=== PATIENT | female | born 1985 | race Caucasian/White ===

== ENCOUNTER 2017-09-22 10:32 | Inpatient (IN) | payer BC ==
[~2017-09-22] VITALS: Ht 165.9 cm; Wt 90.3 kg
[2017-09-22] VITALS (11 sets, daily range): BP systolic 105–129; BP diastolic 54–67; Ht 165.9 cm; Wt 90.3 kg
[2017-09-22] MEDS ORDERED: ceFAZolin(*) 2GM/D5W 50ML 50 ML IVPB PRN (11:22)
[2017-09-22] MEDS ORDERED: OXYTOCIN 30 UNIT/D5LR 500 ML 500 ML IV PRN ×2 (11:22→22:26)
[2017-09-22] MEDS ORDERED: FAMOTIDINE(*) 20MG/50ML PREMIX 50 ML IVPB PRN (11:22)
[2017-09-22] MEDS ORDERED: FLUSH 10 ML SYR IVP PRN (11:25)
[2017-09-22] MEDS ORDERED: LIDOCAINE 1% LOCAL 300 MG/30ML INJ PRN (11:25)
[2017-09-22] MEDS ORDERED: ONDANSETRON 4 MG/2 ML VIAL IVP PRN (11:25)
[2017-09-22] MEDS ORDERED: LIDOCAINE/SOD BICARB 8.4% SYR SC PRN (11:25)
[2017-09-22] MEDS ORDERED: fentaNYL CITR 100 MCG/2 ML AMP IVP PRN (11:25)
[2017-09-22] MEDS ORDERED: METOCLOPRAMIDE 10 MG/2 ML SDV IVP PRN (11:25)
[2017-09-22] MEDS ORDERED: LIDOCAINE/SOD BICARB 8.4% SYR ONE (11:36)
[2017-09-22] MEDS: LR(*) 1000 ML BAG 1,000 ML IV SCH ×3 (11:51→18:00)
[2017-09-22 11:55] LABS: PLATELET COUNT, AUTOMATED 169 K/uL (150-450)
[2017-09-22] MEDS ORDERED: BUPIVACAINE 0.5% INJ 30ML VIAL EPI PRN (12:05)
[2017-09-22] MEDS ORDERED: BUPIVACAINE 0.25% MPF INJ EPI PRN (12:05)
[2017-09-22] MEDS ORDERED: LIDOCAINE/PF 2% 200MG/10ML AMP 200 MG/10 ML AMPUL EPI PRN (12:05)
[2017-09-22] MEDS ORDERED: FENTANYL/ROPIVACAINE 100 ML BAG EPI PRN (12:05)
[2017-09-22] MEDS ORDERED: EPIDURAL KEYS XX PRN (12:05)
[2017-09-22] MEDS ORDERED: fentaNYL CITR 100 MCG/2 ML AMP IT PRN (12:05)
[2017-09-22] MEDS ORDERED: LIDO/EPI 2% MPF 1:200,000 20ML EPI PRN (12:05)
--- NOTE | 2017-09-22 13:51 | History & Physical ---
History of Present Illness Age of Patient: 32 : 1 Para or TPAL: 0 EDC per LMP: Sep 25, 2017 EDC per U/S: Sep 28, 2017 Estimated Gestational Age: 39.4 Chief Complaint Contractions History of Present Illness Pt is a 32 y/o @ 39-4/7 weeks gestation who presents to L&D with a chief complaint of painful contractions. Reports contractions started this morning and are now every 3-5 minutes apart. Denies any vaginal bleeding or loss of amniotic fluid. Reports good movement. Pt diagnosed with seizure disorder during . Takes Keppra. Managed by [facility]. History Patient's Blood Type: A Positive Rubella Status: Immune Group B Strep Screen: Negative Obstetrical History: Primigravid Past Medical History: Partial Seizures: Managed with Keppra BID. Sees Dr[facility]. Allergies: Coded Allergies: No Known Drug Allergies (Unverified , 09/22/17) Social History: Denies X3. . is Miles Review of Systems All Systems Reviewed/Normal: Yes, Except as Noted Constitutional: No Fever, No Weight Loss, No Weight Gain, No Chills, No Night Sweats, No Other Neurological: No Syncope, No Confusion, No Weakness, No Dizziness, No Slurred Speech, No Other Eyes: No Vision Change, No Loss of Vision, No Photophobia, No Other ENT: No Hearing Loss, No Sinus Congestion, No Sore Throat, No Ear Ache, No Tinnitus, No Other Respiratory: No Shortness of Breath, No Cough, No Wheezing, No Other Gastrointestinal: No Nausea, No Vomiting, No Diarrhea, No Dysphagia, No Constipation, No Early Satiety, No Hematemesis, No Hematochezia, No Melena, No Abdominal Pain, No Other Genitourinary: No Dysuria, No Hematuria, No Urinary Incontinence, No Other Musculoskeletal: No Pain, No Sprain, No Strain, No Impaired Mobility, No Other Psychiatric: No Depression, No Anxiety, No Other Exam General Exam Vital Signs Vital Signs Date Time Temp Pulse Resp B/P (MAP) Pulse Ox O2 Delivery O2 Flow Rate FiO2 09/22/17 12:08 99.1 75 18 112/60 (77) 96 General Apperance: Alert/Awake/No Acute Distress Neuro: No Gross deficits Eyes: Normal Extraocular Movement & Vison, PERRLA ENT: Normal Cardiovascular: Regular Rate and Rhythm Respiratory: No Respiratory Distress, Clear to Auscultation Abdomen: Soft, Non-Tender, Non-Distended, Gravid - Non-Tender : Normal Musculoskeletal: No Weakness/Pain Extremities: No Cyanosis,Clubbing or Edema Integumentary: Skin Intact without Lesions or Rash Psychological: Alert & Oriented X3, Appropriate Mood & Affect Cervical Dialation: 5 Cervical Effacement (%): 100 Cervical Consistency: Soft Cervical Position: Anterior Station: -2 Presentation: Vertex Uterine Contractions(Q min): 4 Uterine Contraction Strength: Moderate UC Resting Tone: Soft Fetus Feeling Movement?: Yes Estimated Weight(grams): 3200 Heart Tones: 135 Heart Tone Variabilty: Moderate FHT Accelerations: 15X15 FHT Decelerations: Variable FHT Category: II Medical Decision Making Data Points Result Diagram: 09/22/17 1145 Pre-Admit Course Medical Record Review: Yes VTE Prophylasis: Adult Deep Vein Thrombosis/Pulmonary: No Assessment and Plan LABORATORY CHEMICAL ASSISTANT Assessment: Stable LABORATORY CHEMICAL ASSISTANT Plan: Routine Labor/Induct Care Problems: (1) 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 Seizure precautions while in labor and post . (2) 39 weeks gestation of (3) Active labor at term Assessment & Plan: Plan for amniotomy. Epidural at patient request. MARKOS PRATT DO Sep 22, 2017 13:51
--- NOTE | 2017-09-22 16:36 | Anesthesia OB Pre-Anes Eval ---
History of Present Illness Anesthesia Start Date: Sep 22, 2017 Anesthesia Start Time: 15:30 OB Anesthesia Diagnosis: spontaneous labor Complications: None known EDC: Sep 25, 2017 : 1 Para: 0 Vital Signs: Vital Signs Date Time Temp Pulse Resp B/P (MAP) Pulse Ox O2 Delivery O2 Flow Rate FiO2 09/22/17 12:08 99.1 75 18 112/60 (77) 96 Pain Ratin Heart Tones: WNL Result Diagram: 09/22/17 1145 Height (Inches): 65.30 Weight (Pounds): 199 BMI Calculated: 32.81 Past Medical History Medical History: seizures (with ) Surgical History: other (septoplasty) Previous Anesthesia: general Attended Childbirth Classes?: No, Other (dula) Hx Anesthesia Reactions: No Hx Family Anesthesia Reaction: No Current Medications: pain medication (Fentenyl IV) Allergies: Coded Allergies: No Known Drug Allergies (Unverified , 09/22/17) Anesthesia OB ROS Neurological: seizures (during ,see neurologist and on medication) ENT: Denies Tooth caps, Denies Loose teeth, Denies Chipped teeth, Denies Dentures, Denies Bridges, Denies Retainers, Denies Veneers, Denies Implants, Denies Tongue ring Pulmonary: No asthma, No smoker (pks/day/yrs) Airway Class: ll Cardiovascular ROS: No edema, No arrhythmia GI ROS: clear liquids Last Solids Date: Sep 22, 2017 Last Solids Time: 07:30 ROS: No Herpes, No STD(s), No Liver Disease, No Renal Disease Endocrine ROS: No diabetes, No gestational diabetes, No thyroid disorder Musculoskeletal ROS: No low back pain, No low back injury, No scoliosis ASA Classification: 2 Assessment and Plan Anesthesia Plan: CSE Assessment Past Medical, Surgical, Family and Obstetric Histories reviewed. Please see ACOG chart. Epidural anesthesia risks, complications and benefits explained to patient's satisfaction for labor and vaginal delivery and/or section. General anesthesia risks and benefits explained to patient's satisfaction. Questions invited, none asked. KIRAN DYER CRNA Sep 22, 2017 16:36
--- NOTE | 2017-09-22 16:40 | Procedure Note ---
Anesthetic Placement Note Anesthesia Plan: CSE Permit for Anesthesia Signed: Yes Anesthesia Technique: Patient Sitting Anesthesia Prep: Chlorhexidine Interspace: L 3-4 Local Anesthetic: 1% Lidocaine, 25 Gauge Needle Amount Local - cc's: 2 Anesthesia Needle: 17g Touhy/Schliff Anesthesia Attempts: 1 Loss of Resistance: Air Depth of LOS (cm): 6 Epidural Needle Placement: No CSF, No Blood, No Parasthesia Intrathecal Needle: 27 Gauge Pencan Cerebral Spinal Fluid: Yes, Clear Catheter Insertion (cm): 9 Catheter Type: Andrew - Spring Wound Epidural Dressing: Tegaderm, Tape, Adhesive [place] Anesthesia Tray: Lot Number ([id number]), Expiration Date (2018-04-25), Reference Number ([id number]) Anesthesia Medications: Intrathecal Dose: mcg Fentanyl (15), mg Marcaine MPF (1.75), Time (1544) Epidural Test Dose: 1.5 Lido/Epi (1:200,000), Dose - mL (2), Time (1605), Negative Epidural Loading Dose: 0.2% Ropivicaine, With Fentanyl 2mcg/ml, Dose - ml (5), Time (1606) Epidural Infusion: 0.2% Ropivicaine, With Fentanyl 2mcg/ml, Start Time: (1606) Epidural Pump Setting: Bolus Dose - mL (5), Lockout - Minutes (20), Maintenance Rate - mL/hr (6), Maximum per Hour - mL (21) Complications: None Comment: Vital signs stable. Patient comfortable and condition stable. KIRAN DYER CRNA Sep 22, 2017 16:40
--- NOTE | 2017-09-22 16:47 | Anesthesia Progress Note ---
Progress/Maintenance Anesthesia Note Date: Sep 22, 2017 Anesthesia Note Time: 16:45 Pain Intensity: 0 Pump: On Pump Rate (ML/HR): 6 Sensory Level: T-12 Motor Level: Bending Knees-Bilateral Dilatation: 8 Position: Right, Tilt Assessment and Plan Assessment Turned onto rt side. Mild itching noted. Remains very comfortable and attempting to sleep. Able to move legs very well. KIRAN DYER CRNA Sep 22, 2017 16:47
--- NOTE | 2017-09-22 19:18 | Anesthesia Progress Note ---
Progress/Maintenance Anesthesia Note Date: Sep 22, 2017 Anesthesia Note Time: 19:00 Pain Intensity: 1 Pump: On Pump Rate (ML/HR): 6 Sensory Level: t-12 Motor Level: Bending Knees-Bilateral Dilatation: 10 Position: Left, Tilt Assessment and Plan Assessment States she feels only "pressure". Temp elevated. KIRAN DYER CRNA Sep 22, 2017 19:18
[2017-09-22] MEDS ORDERED: AMPICILLIN 2 GM VIAL 2 GM in NS(*) 0.9% 100 ML ADDVANT BAG 100 ML IVPB ONE (19:30)
[2017-09-22] MEDS ORDERED: GENTAMICIN IVPB ONE (19:35)
[2017-09-22] MEDS ORDERED: NS 0.9% IVPB ONE (19:35)
[2017-09-22] MEDS ORDERED: MEPERIDINE 50 MG/ML SYR ONE (20:30)
[2017-09-22] MEDS ORDERED: MORPHINE PF 5 MG/10 ML AMP ONE (20:33)
[2017-09-22] MEDS ORDERED: ONDANSETRON 4 MG/2 ML VIAL ONE (20:37)
[2017-09-22] MEDS ORDERED: KETOROLAC 30 MG/ML VIAL ONE (20:37)
[2017-09-22] MEDS ORDERED: OXYTOCIN 10 UNIT/ML SDV ONE ×2 (20:59)
--- NOTE | 2017-09-22 21:44 | RADIOLOGY IMAGING REPORT ---
FACILITY: [facility] - [place] PATIENT NAME: Lu Mathew : 1985 MR: [id number] V: [id number] EXAM DATE: ORDERING PHYSICIAN: MARKOS PRATT TECHNOLOGIST: Location: [facility] Patient: Lu Mathew : 1985 Visit/Account:[id number] Date of Sevice: 09/22/2017 KUB SINGLE VIEW ABDOMEN INDICATION: NO COUNT PRIOR TO STAT CSECTION EXAM DATE: 09/22/2017 8:38 PM COMPARISON: None. FINDINGS: 2 supine AP images of the abdomen. Bowel gas pattern is nonobstructive. Soft tissue density overlyi ng the pelvis and lower abdomen consistent with recently gravid uterus. Urethral catheter and epidur al catheter in place. No radiopaque foreign body suspicious for retained surgical equipment. IMPRESSION: No evidence of retained surgical equipment. Report Dictated By: Salomon Jang MD at 09/22/2017 9:39 PM Report E-Signed By: Salomon Jang MD at 09/22/2017 9:41 PM WSN:[id number]
[2017-09-22] MEDS ORDERED: levETIRAcetam 500 MG TAB PO SCH (22:00)
--- NOTE | 2017-09-22 22:04 | Anesthesia Progress Note ---
Progress/Maintenance Anesthesia Note Date: Sep 22, 2017 Anesthesia Note Time: 20:06 Pain Intensity: 0 Pump: Off Motor Level: Other (legs heavy) Dilatation: 10 Position: Tilt, Semi-Fowlers Assessment and Plan Assessment Decision made for E C/Section, intolerance of labor. Dosing with 2% Lidocaine with Epi. 10 ml given and additional [address] to OR. To OR per bed. Epidural Catheter Removal: Removed Catheter Intact, Yes, Removed by: (Aniket Juan CRNA) Removal Date: Sep 22, 2017 Removal Time: 21:45 KIRAN JUAN CRNA Sep 22, 2017 22:04
[2017-09-22] MEDS ORDERED: NALOXONE HCL 0.4 MG/ML VIAL IV PRN (22:05)
[2017-09-22] MEDS ORDERED: NALBUPHINE HCL 10 MG/ML AMP IVP PRN (22:05)
[2017-09-22] MEDS ORDERED: diphenhydrAMINE 25 MG CAP PO PRN (22:05)
--- NOTE | 2017-09-22 22:26 | Labor Progress Note ---
Labor Subjective Progress Notes Subjective Pt starting to feel hot and uncomfortable racing heart. Feeling Movement?: Yes Vaginal Discharge/Fluid: Green Tinged Fluid Labor Pain: Moderate Neurological: No Headache, No Other Eyes: No Visual Disturbances Labor Objective Vital Signs Vital Signs Date Time Temp Pulse Resp B/P (MAP) Pulse Ox O2 Delivery O2 Flow Rate FiO2 09/22/17 22:15 99.5 95 16 116/57 (76) 92 Nasal Cannula 1.0 Cervical Dialation: 10 Cervical Effacement (%): 100 Cervical Consistency: Soft Cervical Position: Anterior Station: 0 Fetus Heart Tones: 180 Heart Tone Variabilty: Minimal FHT Decelerations: Variable FHT Category: II Other Result Diagram: 09/22/17 1145 Assessment and Plan COMMISSIONS COORDINATOR Assessment: Stable Problems: (1) Epilepsy 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 Pt was given diagnosis of Chorioamnionitis started on Ampicillin 2 gm also received loading dose of Gentamicin 2 mg/kg. Discussed with patient. Meconium stained amniotic fluid waterproof bag cutting machine operator notified. MARKOS PRATT DO Sep 22, 2017 22:26
[2017-09-22] MEDS ORDERED: INFLUENZA VIRUS VAC 0.5 ML SYR IM ONLY ONE (22:30)
[2017-09-22] MEDS ORDERED: LANOLIN OINT 7 GM TUBE TP PRN (22:30)
[2017-09-22] MEDS ORDERED: MEASLES,MUMP,RUBELLA VAC 0.5ML SUBQ ONE (22:30)
[2017-09-22] MEDS ORDERED: ONDANSETRON 4 MG/2 ML VIAL IV PRN (22:30)
[2017-09-22] MEDS ORDERED: SIMETHICONE 80 MG CHEW CHEW PRN (22:30)
[2017-09-22] MEDS ORDERED: PROMETHAZINE 25 MG/ML 1 ML AMP IVP PRN (22:30)
[2017-09-22] MEDS ORDERED: ZOLPIDEM TARTRATE 5 MG TAB PO PRN (22:30)
[2017-09-22] MEDS ORDERED: ACETAMINOPHEN 325 MG TAB PO PRN (22:30)
[2017-09-22] MEDS ORDERED: DIPHTH/TETANUS/ACEL. PERTUSSIS IM ONLY ONE (22:30)
--- NOTE | 2017-09-22 22:43 | Post Operative Note ---
Operative Note - INDUSTRIAL MACHINERY MECHANIC Operative Day Date: Sep 22, 2017 Time: 22:30 Physicians Surgeon: Markos Peck Anesthesia: Epidural Diagnosis Pre-Op Diagnosis: 32 y/o @ 39-4/7 weeks gestation Labor Cat 2 tracing-prolonged heart deceleration X 7 minutes in the 50's MSAF Chorioamnionitis Epilepsy Post-Op Diagnosis: same Procedure Findings: live born male at [birth year]22 with apgars of 5 and 8. Weighing 3450 gm 7 #9oz. 3 vc/ip. Normal tubes and ovaries bilaterally. Nuchal cord X 1. Body cord X 1. Procedure(s): 1LTCS Specimen Removed:(Maybe N/A): Placental cultures Complications: 0 known Fluids Fluids: 1000 cc LR U/O 150 Estimated Blood Loss: 900 Dictated Date OP Note Dictated: Sep 22, 2017 Time OP Note Dictated: 22:43 MARKOS PECK DO Sep 22, 2017 22:43
[2017-09-23] VITALS (10 sets, daily range): BP systolic 89–112; BP diastolic 43–64
[2017-09-23] MEDS: DLR(*) 1000 ML BAG 1,000 ML IV PRN ×2 (00:07→07:21)
--- NOTE | 2017-09-23 00:14 | OPERATIVE REPORT 1 ---
EVENT DATE: September 22, 2017 SURGEON: Wayne Peck DO ANESTHESIA: Epidural, Jane Juan CRNA PREOPERATIVE DIAGNOSES 1. A 32-year-old 1, para zero, at 39-4/7 weeks' gestation. 2. Labor. 3. Chorioamnionitis. 4. Category 2 tracing, prolonged heart deceleration times seven minutes in the 50s. 5. Maternal epilepsy. POSTOPERATIVE DIAGNOSES 1. A 32-year-old 1, para zero, at 39-4/7 weeks' gestation. 2. Labor. 3. Chorioamnionitis. 4. Category 2 tracing, prolonged heart deceleration times seven minutes in the 50s. 5. Maternal epilepsy. 6. Delivered. PROCEDURE PERFORMED Primary low transverse section. FINDINGS Live-born male at 2022 with Apgars of 5 and 8, weighing 3450 g, 7 pounds 9 ounces. Three-vessel cord, intact placenta. Normal tubes and ovaries bilaterally. Nuchal cord times one. Body cord times one. Cord pH unable to be processed secondary to respiratory therapy concerns for quantity of blood. PATHOLOGY Placenta cultures. ESTIMATED BLOOD LOSS 900 mL INTRAVENOUS FLUIDS Lactated Ringer's 1000 mL. URINE OUTPUT 150 mL COMPLICATIONS None known. CONDITION Stable times two. Mother and to remain in the recovery room and then to the LDRP. COUNTS Correct per x-ray secondary to no surgical count prior to starting surgery. LABOR SUMMARY The patient is a 32-year-old 1, para zero, at 39-4/7 weeks' gestation who presented with the chief complaint of painful contractions and was noted to 5 cm upon admission. She did receive an epidural and underwent amniotomy with clear amniotic fluid noted at time of rupture. The patient quickly progressed from 5 cm to 8 cm, and then it was noted that the variability decreased to minimal. Then, the baby started to have some tachycardia between the 160s to 180s, consistently close to 180. Maternal temperature was noted to be 101 and then 102. With tachycardia, maternal temperature, and maternal tachycardia, it was decided to treat for chorioamnionitis. She did receive 2 g of ampicillin, followed by 2 mg/kg loading dose of gentamicin for empiric treatment for chorioamnionitis. At this time, it was also noted there was meconium-stained amniotic fluid. At this point, the patient was informed of the need for antibiotics, and the alteration tailor apprentice was also informed of antibiotics as well as meconium-stained amniotic fluid. The patient was noted to be complete thereafter. Once complete, the patient was set up for vaginal delivery. Prior to getting the patient ready and pushing, it was noted that there was approximately a seven-minute deceleration of the heart rate to the 50s to 60s for that seven minutes with slow return to baseline and then repetitive variable decelerations after that. At this point, the patient was counseled for the need for section, and the decision to proceed urgently was agreed upon by both mother and father. INDICATIONS AND CONSENT The patient is a 32-year-old 1, para zero, at 39-4/7 weeks who consents for a primary low transverse section secondary to category 2 heart tracing with a prolonged deceleration. The patient understands risks, benefits, and alternatives and agrees to proceed with primary low transverse section. She also agrees for blood products if necessary secondary to bleeding concerns. DESCRIPTION OF PROCEDURE The patient was taken to the operating room where epidural anesthesia was rebolused. She was placed in the dorsal supine position with a left lateral tilt. She was prepped and draped in the usual sterile manner. A Pfannenstiel skin incision was then made with a scalpel. This was carried sharply down to the layer of the fascia. Once the fascia was visualized, it was notched bilaterally. The fascial incision was extended laterally with curved Varela scissors. This was done bilaterally. The rectus muscles were dissected both inferiorly and superiorly off of the fascia. The rectus muscles were at midline. The peritoneum was entered sharply with Metzenbaum scissors. Gentle stretching was performed. A bladder blade was placed. A low transverse incision was then created on the uterus. This was carried sharply down until meconium-stained amniotic fluid was noted. At this point, the surgeon's finger was placed inside the hysterotomy. The hysterotomy was extended laterally with the surgeon's fingers. At this point, the infant's head was brought to the level of the hysterotomy. Once at the hysterotomy, it was brought through the hysterotomy. With gentle fundal pressure, the 's head delivered in a controlled manner, followed by the posterior shoulder with upward motion and then anterior shoulder with downward motion. The remainder of the 's body delivered spontaneously. At this point, the mouth and nose were bulb suctioned. The did give some effort. His mouth and nose were continued to be bulb suctioned. The cord was clamped times two and cut, and the was handed to awaiting alteration tailor apprentice, Dr. Kerr. Next, cord pH was collected, followed by cord blood. The placenta then was delivered manually. The uterus was then exteriorized, wrapped with a wet laparotomy sponge, and cleaned of all clot and debris with a dry laparotomy sponge. The angles of the incision were then grasped with Estrella clamps. The uterus was then closed using a 0 Vicryl in a running manner. There was some bleeding at the incision line, so an imbrication stitch was then used with another 0 Vicryl with hemostasis noted of the uterus. The posterior gutter was cleaned of all clot and debris. Secondary to concerns of chorioamnionitis, the abdomen was cleaned and irrigated with copious amounts of normal saline. At this point, the uterus was then placed back inside the abdomen. The right and left gutters were cleaned of all clot and debris. The hysterotomy was once again inspected and found to be hemostatic. At this point , the peritoneum was grasped with Pean clamps and closed with 2-0 Monocryl in a running manner. The rectus muscles were inspected and found to be hemostatic. The fascia was then closed with a 0 looped PDS in a running manner. Copious amounts of irrigation were then used for the subcutaneous tissue. The subcutaneous tissue was approximately 2 cm in thickness, and it was closed with a 3-0 Monocryl in a running manner. The skin was then closed with a 4-0 Monocryl in a subcuticular manner. The skin then had Dermabond placed over the incision. At this point, the patient was cleaned. She was transferred to the recovery room in stable condition. KAITLIN
[2017-09-23] MEDS ORDERED: ceFAZolin(*) 2GM/D5W 50ML 50 ML IVPB ONE (02:51)
[2017-09-23] MEDS ORDERED: FAMOTIDINE(*) 20MG/50ML PREMIX 50 ML IVPB ONE (02:52)
[2017-09-23] MEDS: KETOROLAC 30 MG/ML VIAL IVP SCH ×3 (02:55→15:11)
[2017-09-23] MEDS: cefOXitin/DEX(*) 2GM/50ML PREM 50 ML IVPB SCH ×3 (02:56→15:12)
[2017-09-23 06:36] LABS: PLATELET COUNT, AUTOMATED 144 K/uL (150-450)
--- NOTE | 2017-09-23 07:41 | OB/GYN Progress Note ---
OB Subjective Progress Notes Subjective Doing good this morning. Tolerating regular diet. Still has valencia catheter. Reports feeling significantly better then she did before surgery. . Lochia appropriate. No fevers or chills. Pain controlled. GI: NEG Nausea, NEG Vomiting, NEG Flatus, NEG Bowel Movement : Vaginal Bleeding, Moderate Pain: Mild, Tolerating PO Pain Meds Neurological: No Headache, No Other Eyes: No Visual Disturbances OB Objective Physical Exam Vital Signs Date Time Temp Pulse Resp B/P (MAP) Pulse Ox O2 Delivery O2 Flow Rate FiO2 09/23/17 07:00 63 99 09/23/17 04:55 97.9 16 93/45 (61) Nasal Cannula 1.5 Intake and Output 09/24/17 07:00 Intake Total 900 ml Balance 900 ml Intake IV Total 900 ml General Appearance: Alert/Awake/No Acute Distress Neurological: No Gross deficits Eyes: Normal Extraocular Movement & VisonMICHAEL ENT: Normal Neck: No Masses Cardiovascular: Normal Rhythm & Peripheral Pulses, Regular Rate and Rhythm Respiratory: No Respiratory Distress, Clear to Auscultation Abdomen: Soft, Non-Tender, Non-Distended Incision: Clean, Dry, Intact, Dermabond Extremities: No Cyanosis,Clubbing or Edema Integumentary: Skin Intact without Lesions or Rash Psychological: Alert & Oriented X3, Appropriate Mood & Affect Result Diagram: 09/23/17 0550 Assessment and Plan SALES AND MARKETING ANALYST Assessment: Stable SALES AND MARKETING ANALYST Plan: Routine Post-Op Care Problems: (1) Epilepsy affecting in third trimester Assessment & Plan: Continue Keppra Post . Will need to discuss with Neurology about possibly decreasing dose and time to do so. (2) 39 weeks gestation of Status: Resolved (3) Active labor at term Status: Resolved (4) care following delivery Assessment & Plan: Doing good 12 hours after surgery. Will continue IV Cefoxitin for 24 hours total. D/C valencia catheter and saline lock IV today. Increase ambulation. Transition to PO pain medications. MARKOS PRATT DO Sep 23, 2017 07:40
[2017-09-23] MEDS: FAMOTIDINE 20 MG TAB PO SCH ×2 (08:37→20:59)
[2017-09-23] MEDS: DOCUSATE CALCIUM 240 MG CAP PO SCH ×2 (08:37→20:58)
[2017-09-23] MEDS: levETIRAcetam 500 MG TAB PO SCH ×2 (09:33→22:04)
--- NOTE | 2017-09-23 11:45 | Anesthesia Post Eval Note ---
Anesthesia Post Eval Note Vital Signs Date Time Temp Pulse Resp B/P (MAP) Pulse Ox O2 Delivery O2 Flow Rate FiO2 09/23/17 08:30 Nasal Cannula 1.5 09/23/17 08:30 98.1 71 16 95/49 (64) 99 Pt able to participate in Eval: Yes Cardiovascular Status: Satisfactory Respiratory Status: Satisfactory Pain Managment: Satisfactory PO Nausea/Vomiting: Satisfactory Temperature Management: Satisfactory Mental Status: Satisfactory, Alert, Oriented X3 Post-Op Hydration Status: Satisfactory, Tolerating PO Well, Voiding w/o Difficulty Anesthesia Type: CSE Anesthesia Tolerance: Tolerated procedure well without apparent anesthetic complications. LP site clear, no redness or edema. Denies headache or any residual paresthesia. Vital Signs Stable, Patient comfortable and condition stable. KIRAN DYER CRNA Sep 23, 2017 11:45
[2017-09-23] MEDS: IBUPROFEN 800 MG TAB PO SCH (20:58)
[2017-09-23] MEDS ORDERED: cefOXitin/DEX(*) 2GM/50ML PREM 50 ML IVPB ONE (22:20)
[2017-09-24 00:40] VITALS: BP 93/45
[2017-09-24] MEDS: cefOXitin/DEX(*) 2GM/50ML PREM 50 ML IVPB SCH ×4 (03:00→20:45)
[2017-09-24] MEDS: IBUPROFEN 800 MG TAB PO SCH ×3 (05:01→20:44)
[2017-09-24 05:05] VITALS: BP 95/57
[2017-09-24 07:11] LABS: PLATELET COUNT, AUTOMATED 149 K/uL (150-450)
[2017-09-24 08:00] VITALS: BP 105/62
--- NOTE | 2017-09-24 09:06 | OB/GYN Progress Note ---
OB Subjective Progress Notes Subjective Doing good this morning. Reports having a fever overnight, with Tylenol helping. Denies any pain around the incision or intra-abdominally. Pt's pain controlled with PO antibiotics. Tolerating regular diet. Voiding with out any difficulty. . GI: NEG Nausea, NEG Vomiting, NEG Flatus, NEG Bowel Movement : Voiding Well, Vaginal Bleeding, Moderate Pain: Mild, Tolerating PO Pain Meds Neurological: No Headache, No Other Eyes: No Visual Disturbances OB Objective Physical Exam Vital Signs Date Time Temp Pulse Resp B/P (MAP) Pulse Ox O2 Delivery O2 Flow Rate FiO2 09/24/17 05:05 97.9 82 16 95/57 (70) 94 Room Air 09/23/17 08:30 1.5 General Appearance: Alert/Awake/No Acute Distress Neurological: No Gross deficits Eyes: Normal Extraocular Movement & Vison, PERRLA ENT: Normal Neck: No Masses Cardiovascular: Normal Rhythm & Peripheral Pulses, Regular Rate and Rhythm Respiratory: No Respiratory Distress, Clear to Auscultation Abdomen: Soft, Non-Tender, Non-Distended Incision: Clean, Dry, Intact, Dermabond Extremities: No Cyanosis,Clubbing or Edema Integumentary: Skin Intact without Lesions or Rash Psychological: Alert & Oriented X3, Appropriate Mood & Affect Result Diagram: 09/24/17 0644 Assessment and Plan QUALITY CHECKER Assessment: Stable QUALITY CHECKER Plan: Routine Post-Op Care Problems: (1) Epilepsy affecting in third trimester (2) 39 weeks gestation of Status: Resolved (3) Active labor at term Status: Resolved (4) care following delivery Assessment & Plan: Pt had 102 temp last evening while on cefoxitin. Abdomen soft, non tender with no erythema. Blood cultures drawn at time of fever. WBC count improved this AM. Because cultures were drawn will add broader coverage of antibiotics by adding daily Gentamicin IV. If cultures negative will d/c antibiotics. Pt otherwise meeting post operative goals. Ambulatory, voiding with out any difficulty, tolerating regular diet, and . MARKOS PRATT DO Sep 24, 2017 09:06
[2017-09-24] MEDS: DOCUSATE CALCIUM 240 MG CAP PO SCH ×2 (09:22→20:44)
[2017-09-24] MEDS: FAMOTIDINE 20 MG TAB PO SCH ×2 (09:22→20:44)
[2017-09-24] MEDS: levETIRAcetam 500 MG TAB PO SCH ×2 (10:04→22:34)
[2017-09-24] MEDS ORDERED: NS(*) 0.9% 250 ML BAG 250 ML IVPB PRN (10:20)
[2017-09-24] MEDS: NS 0.9% IVPB SCH (10:43)
[2017-09-24] MEDS: GENTAMICIN IVPB SCH (10:43)
[2017-09-24 13:07] VITALS: BP 106/63
[2017-09-24 15:52] VITALS: BP 105/53
[2017-09-24 19:20] VITALS: BP 106/65
[2017-09-25] MEDS: cefOXitin/DEX(*) 2GM/50ML PREM 50 ML IVPB SCH ×2 (04:18→09:10)
[2017-09-25] MEDS: IBUPROFEN 800 MG TAB PO SCH ×2 (04:18→13:42)
[2017-09-25 04:20] VITALS: BP 112/67
[2017-09-25 08:00] VITALS: BP 108/65
[2017-09-25] MEDS: FAMOTIDINE 20 MG TAB PO SCH (09:10)
[2017-09-25] MEDS: DOCUSATE CALCIUM 240 MG CAP PO SCH (09:10)
--- NOTE | 2017-09-25 09:55 | OB/GYN Progress Note ---
OB Subjective Progress Notes Subjective Doing good POD #2. Denies any fevers overnight or yesterday. Feeling much better today. Reports is getting better. Tolerating regular diet. Ambulatory. Voiding with out any difficulty. GI: NEG Nausea, NEG Vomiting, NEG Flatus, NEG Bowel Movement : Voiding Well, Scant Pain: Mild, Tolerating PO Pain Meds Neurological: Headache, No Other Eyes: No Visual Disturbances OB Objective Physical Exam Vital Signs Date Time Temp Pulse Resp B/P (MAP) Pulse Ox O2 Delivery O2 Flow Rate FiO2 09/25/17 04:20 98.7 81 18 112/67 (82) 93 Room Air 09/23/17 08:30 1.5 General Appearance: Alert/Awake/No Acute Distress Neurological: No Gross deficits Eyes: Normal Extraocular Movement & Vison, PERRLA ENT: Normal Neck: No Masses Cardiovascular: Normal Rhythm & Peripheral Pulses, Regular Rate and Rhythm Respiratory: No Respiratory Distress, Clear to Auscultation Abdomen: Soft, Non-Tender, Non-Distended Incision: Clean, Dry, Intact, Dermabond Extremities: No Cyanosis,Clubbing or Edema Integumentary: Skin Intact without Lesions or Rash Psychological: Alert & Oriented X3, Appropriate Mood & Affect Result Diagram: 09/24/17 0644 09/24/17 1025 Assessment and Plan EKG MONITOR Assessment: Stable Problems: (1) 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 and plan discharge home if infant is discharged. MARKOS PRATT DO Sep 25, 2017 09:55
[2017-09-25] MEDS ORDERED: PER PO (09:57)
[2017-09-25] MEDS ORDERED: IBUP800T37 PO (09:57)
[2017-09-25] MEDS ORDERED: CEPH500T7 PO (09:57)
--- NOTE | 2017-09-25 10:00 | OB/GYN Discharge Summary ---
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 Progressed with out any difficulty to 10 cm. Did develop signs or Chorioamnionitis. Pt was started on Ampicillin and Gentamicin for Empiric treatment. Decelerations of heart rate prompted . See delivery note for details. Pt remained on Cefoxitin and Gentamicin post operatively until 24 hours with out a fever. Was meeting all goals post operatively and was discharged home with infant. [facility]ates Vital Signs Vital Signs Date Time Temp Pulse Resp B/P (MAP) Pulse Ox O2 Delivery O2 Flow Rate FiO2 09/25/17 04:20 98.7 81 18 112/67 (82) 93 Room Air 09/23/17 08:30 1.5 Weight (Pounds): 199 Result Diagram: 09/24/17 0644 09/24/17 1025 Condition: Improved Discharge: Home Home Meds Active Scripts Cephalexin 500 Mg Tab (KEFLEX 500 MG TAB) 500 Mg Tablet, 500 MG PO Q8H for 7 Days, #21 TAB Prov:MARKOS PRATT DO 09/25/17 Oxycodone/Acetaminophen (OXYCODONE/ACETAMINOPHEN 5MG/325 MG) 5 Mg/325 Mg Tab, 1- 2 TAB PO Q4H Y for PAIN, #30 TAB 0 Refills Prov:MARKOS PRATT DO 09/25/17 Ibuprofen (IBUPROFEN) 800 Mg Tablet, 800 MG PO Q8H@0500,1300,2100, #30 TAB 0 Refills Prov:MARKOS PRATT DO 09/25/17 Follow up with: Dr. Pratt [phone] Follow up in: 2 wks PO Discharge Diet: As Tolerates, Resume Prior Admit Diet, Increase Fluid Intake Discharge Activity: Pelvic Rest MARKOS PRATT DO Sep 25, 2017 10:00
[2017-09-25] MEDS: levETIRAcetam 500 MG TAB PO SCH (10:17)
[2017-09-25] MEDS: NS 0.9% IVPB SCH (10:18)
[2017-09-25] MEDS: GENTAMICIN IVPB SCH (10:18)
== END 2017-09-25 14:28 | disposition home or self-care (01) | DRG 765 ==
LOC: OB 10:32
PROVIDERS: ADMIT Student in an Organized Health Care Education/Training Program; ATTEND Student in an Organized Health Care Education/Training Program
PROC: 10907ZC Drainage of Amniotic Fluid, Therapeutic from Products of Conception, Via Natural or Artificial Opening (ICD-10-PCS; 2017-09-22)
PROC: 10D00Z1 Extraction of Products of Conception, Low, Open Approach (ICD-10-PCS; principal; 2017-09-22 20:33)
DX: O99.354 Diseases of the nervous system complicating childbirth (principal); O41.1230 Chorioamnionitis, third trimester, not applicable or unspecified; G40.909 Epilepsy, unspecified, not intractable, without status epilepticus; O77.0 Labor and delivery complicated by meconium in amniotic fluid; O76 Abnormality in fetal heart rate and rhythm complicating labor and delivery; O69.81X0 Labor and delivery complicated by cord around neck, without compression, not applicable or unspecified; Z3A.39 39 weeks gestation of pregnancy; Z37.0 Single live birth
CPT/HCPCS: 36415; 74018; 82310; 82374; 82435; 82565; 82947; 84132; 84295; 84520; 85025; 86850; 86900; 86901; 87040; 87071; 87073; 87205; J0290; J0690; J0694; J1580; J1885; J2175; J2270; J2405; J2590; J3010; J3490; J7050; J7120; S0020

== ENCOUNTER → 2019-02-22 | Outpatient (CLI) | payer BC ==
[2017-09-22 12:08] VITALS: BMI 32.8
[~2019-02-22] MED LIST: CEPH500T7 PO; FLU60SYR36 IM; FOLI0.4T56 PO; IBUP800T37 PO; LEVE500T73 PO; PER PO; PREN-127 PO; [UNRECOGNIZED DRUG - CODE] TP
[2019-02-22 11:04] LABS: PLATELET COUNT, AUTOMATED 230 K/uL (150-450)
== END ==
LOC: LAB 09:41
PROVIDERS: ATTEND Obstetrics & Gynecology
DX: Z34.91 Encounter for supervision of normal pregnancy, unspecified, first trimester (principal)
CPT/HCPCS: 36415; 81001; 85025; 86592; 86703; 86762; 86850; 86900; 86901; 87088; 87340

== ENCOUNTER → 2019-02-25 | Outpatient (CLI) | payer BC ==
[2017-09-22 12:08] VITALS: BMI 32.8
== END ==
LOC: LAB 14:25
PROVIDERS: ATTEND Obstetrics & Gynecology
DX: Z11.3 Encounter for screening for infections with a predominantly sexual mode of transmission (principal); Z11.8 Encounter for screening for other infectious and parasitic diseases
CPT/HCPCS: 87491; 87591